=== PATIENT | male | born 1965 | race Caucasian/White ===

== ENCOUNTER 2019-12-15 18:37 | Emergency (ER) | payer MEDICAID ==
[~2019-12-15] VITALS: Ht 170.2 cm; Wt 107.0 kg
[2019-12-15 18:57] VITALS: Ht 170.2 cm; Wt 107.0 kg
[2019-12-15 23:16] LABS: BASOPHIL % 0.5 % (0-2); PLATELET COUNT 226 x10^3mcL (130-400); RED CELL DISTRIBUTION WIDTH 12.7 % (11.5-14.5)
[2019-12-15 23:41] LABS: CALCIUM 8.5 mg/dL (8.5-10.1); CARBON DIOXIDE 30.7 mmol/L (21-32); CHLORIDE SERUM 102 mmol/L (98-107); CREATININE SERUM 1.2 mg/dL (0.7-1.3); GFR1 > 60 mL/min; GLUCOSE SERUM 112 mg/dL (74-106); POTASSIUM SERUM 3.8 mmol/L (3.5-5.1); SODIUM SERUM 139 mmol/L (136-145)
[2019-12-15 23:52] LABS: ALBUMIN 3.7 g/dL (3.4-5.0); ALKALINE PHOSPHATASE 111 U/L (46-116); ALT/SGPT 45 U/L (16-63); AST/SGOT 27 U/L (15-37); BILIRUBIN TOTAL 0.27 mg/dL (0.20-1.00); LIPASE 138 IU/L (73-393); MAGNESIUM 2.3 mg/dL (1.8-2.4); TOTAL PROTEIN, SERUM 7.1 g/dL (6.4-8.2)
[2019-12-16 00:31] VITALS: BP 106/71
== END 2019-12-16 00:31 | disposition home or self-care (01) ==
LOC: ED 18:37
PROVIDERS: Emergency Medicine
DX: R07.89 Other chest pain (principal); I10 Essential (primary) hypertension
CPT/HCPCS: Q0092